=== PATIENT | male | born 1955 | race Caucasian/White ===

== ENCOUNTER → 2019-08-22 | Outpatient (CLI) | payer OTHER, SELFPAY ==
--- NOTE | 2019-08-22 | IMM_PTH ---
PATIENT: KENJI HERNANDES Jr. LOC: [facility] U#:[id number] AGE/SX: 63/M ROOM: RE08/22/[address]: Dr. Daniel Carrillo MD : 1955 BED: DIS: 08/22/2019 SPEC #: [id number] RECD: 08/26/19 12:50 STATUS: SOUT REQ #: [id number] JEY: 08/22/19 00:[address]: Nick Carrillo DEPT: IMMUNOHISTOCHEMISTRY RECD BY: Dolores Mcintosh ENTERED: 08/26/19 12:51 SP TYPE: IMMUNO OTHR DR: MD Dr. Daniel Monge, DO Tissues: Tongue, NOS Procedures: SMA (add) CD31 (add) CD34 (add) CD45 (add) CK5-6 (add) CK7 (add) CK8 (add) DESMIN (add) KI-67 (add) MART1 (add) P16 (add) P53 (add) Vimentin (add) Pankeratin (initial) MELAN-A (add) P40 (add) S-100 (add) Comments: @ Ordering doctor for s100. edited from to @ by RGOOD at 08/30/19 1515 @ Ordering doctor for SMA. edited from to @ by RGOOD at 08/30/19 1515 @ Ordering doctor for CD31. edited from to @ by RGOOD at 08/30/19 1515 @ Ordering doctor for CD34. edited from to @ by FREDYOD at 08/30/19 1515 @ Ordering doctor for CD45. edited from to @ by RGOOD at 08/30/19 1515 @ Ordering doctor for CK5-6. edited from to @ by RGOOD at 08/30/19 1515 @ Ordering doctor for CK7. edited from to DR.KMATHU Hassan by RGOOD at 08/30/19 1515 @ Ordering doctor for CK8. edited from to DR.KMATHU Hassan by RGOOD at 08/30/19 1515 @ Ordering doctor for DESMIN. edited from to DR.KMATHU Hassan by RGOOD at 08/30/19 1515 @ Ordering doctor for KI67. edited from to DR.KMATHU Hassan by RGOOD at 08/30/19 1515 @ Ordering doctor for MART1. edited from to DR.KMATHU Hassan by RGOOD at 08/30/19 1515 @ Ordering doctor for P16. edited from to DR.KMATHU Hassan by RGOOD at 08/30/19 1515 @ Ordering doctor for P53. edited from to DR.KMATHU Hassan by RGOOD at 08/30/19 1515 @ Ordering doctor for VIM. edited from to DR.KMATHU Hassan by RGOOD at 08/30/19 1515 @ Ordering doctor for PANK edited from to DR.KMATHU Hassan by RGOOD at 08/30/19 1515 @ Ordering doctor for MELAN. edited from to DR.KMATHU Hassan by RGOMARQUEZ at 08/30/19 1515 @ Ordering doctor for P40. edited from to DR.KMATHU Hassan by RGOOD at 08/30/19 1515 @ Submitting doctor edited from to DR.KMATHU Hassan by RGOOD at 08/30/19 1515 PHYSICIAN & INSTITUTION [facility] [address] [place] [id number] SPECIMEN INFORMATION: Tissue Source: Tongue lesion Clinical Info: Evaluate for squamous cell carcinoma Specimen Number: [id number] CPT code: 30885, 10206 x16 METHODOLOGY: Deparaffinized sections of prefer/formalin-fixed tissue or PAP/DQ stained slides are incubated with monoclonal/polyclonal antibodies/oligonucleotide probes. Localization is made via biotin free immunoperoxidase method. Appropriate controls are performed and reacted as expected. Results on target cell population are indicated in the following table: RESULTS: ANTIBODY / CLONE RESULT AE1-3 (AE1/AE3/PCK26) positive, focal CK8 ([id number]) positive, focal Vimentin (V9) positive Melan A (A103) negative S-100 (4C4.9) positive, focal CK5-6 (D5 & 1684) positive P40 (BC28) positive P16 (E6H4) negative Actin (1A4) negative Desmin (CE-R-11) negative CK7 (OV-TL12/30) negative CD31 (CASIMIRO/70A) negative CD34 (QBEnd-10) negative CD45 (RP2/18) negative P53 (DO-7) negative Ki-67 (30-9) positive These tests were developed and their performance characteristics determined by [facility]. They may not have been cleared or approved by the U.S. Food and Drug Administration. The FDA has determined that such clearance or approval is not necessary. The above immunohistochemical/dualISH markers are ordered and reviewed by the Pathologist. INTERPRETATION: Tongue lesion, biopsy: Poorly differentiated malignant neoplasm. 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 Clinical correlation is necessary. Case has been reviewed in consultation with Dr. Garcia who concurs with the above diagnosis. IDC:AM
--- NOTE | 2019-08-22 09:40 | TOBX_PTH ---
PATIENT: KENJI HERNANDES Jr. LOC: [facility] U#:[id number] AGE/SX: 63/M ROOM: RE08/22/[address]: Dr. Daniel Carrillo MD : 1955 BED: DIS: 08/22/2019 SPEC #: [id number] RECD: 08/22/19 15:35 STATUS: MOSHE REQ #: [id number] JEY: 08/22/19 09:[address]: Nick Carrillo DEPT: SURGICAL PATHOLOGY RECD BY: Sukhdeep Rico ENTERED: 08/23/19 11:13 SP TYPE: TONGUE BX OTHR DR: MD Dr. Daniel Monge DO Tissues: Tongue, NOS Procedures: Surgery Specimen Level IV Comments: @ Ordering doctor for SUIV edited from to @ by RGOOD at 08/30/19 1514 @ Submitting doctor edited from to @ by RGOOD at 08/30/19 1514 HEADER OPERATION: Biopsy PRE-OP DIAGNOSIS: Evaluate for squamous cell carcinoma TISSUE SUBMITTED: Tongue lesion MICROSCOPIC DIAGNOSIS Tongue lesion, biopsy: Poorly differentiated malignant neoplasm. See comment. 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 Correlation with clinical findings and appropriate follow up are necessary. This case is discussed with Dr. Barbara Carrillo on 08/28/19. Case has been reviewed in consultation with Dr. Garcia who concurs with the above diagnosis. IDC:AM. MICROSCOPIC DESCRIPTION Slides are reviewed. GROSS DESCRIPTION Received in fixative is one container labeled with the patient's name and designated tongue lesion. The specimen consists of a piece of pickard mucosal tissue measuring 0.5 x 0.3 x 0.1 cm. The specimen is totally submitted in one cassette. / ADWOA:ashleigh 08/23/19 TC:0 [facility]: [id number] ADDENDUM ADDENDUM ADDENDUM ADDENDUM ADDENDUM ADDENDUM ADDENDUM ADDENDUM ADDENDUM ADDENDUM 10/17/2019 10:54 ADDENDUM 10/17/2019 10:54 ADDENDUM 10/17/2019 10:54 ADDENDUM 10/17/2019 10:54 ADDENDUM 10/17/2019 10:54 This addendum is added to incorporate an outside pathology consultation report. The case was examined at [facility] (#[id number]) and the following diagnosis was rendered. 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 Please see complete above mentioned consultation report in EMR
== END | disposition home or self-care (01) ==
LOC: LABSPEC 16:20
PROVIDERS: PCP Student in an Organized Health Care Education/Training Program; Referring Provider Otolaryngology Otolaryngology/Facial Plastic Surgery; Visit Provider Otolaryngology Otolaryngology/Facial Plastic Surgery
DX: K14.9 Disease of tongue, unspecified (principal)
CPT/HCPCS: 88305; 88341; 88342

== ENCOUNTER 2019-09-27 11:25 | Outpatient (RCR) | payer OTHER, SELFPAY ==
[2019-09-27 11:50] VITALS: BP 134/76; PULSE 93; RESP 16; TEMP 36.7; BMI 27.3
--- NOTE | 2019-09-29 18:37 | HP.PCM_ITS ---
(1) Tongue cancer Status: Chronic Code(s): C02.9 - Malignant neoplasm of tongue, unspecified (2) Skin graft failure Status: Chronic Code(s): T86.821 - Skin graft (allograft) (autograft) failure (3) Complication of skin graft Status: Chronic Qualifiers: Transplant complication type: failure Qualified Code(s): T86.821 - Skin graft (allograft) (autograft) failure Code(s): T86.829 - Unspecified complication of skin graft (allograft) (autograft) (4) Non-healing surgical wound Status: Chronic Qualifiers: Encounter type: subsequent encounter Qualified Code(s): T81.89XD - Other complications of procedures, not elsewhere classified, subsequent encounter Code(s): T81.89XA - Other complications of procedures, not elsewhere classified, initial encounter (5) Tobacco abuse Status: Chronic Code(s): Z72.0 - Tobacco use (6) Hyperlipidemia Status: Chronic Code(s): E78.5 - Hyperlipidemia, unspecified History of Present Illness Date of Service: 09/27/19 Chief Complaint: nonhealing surgical wound of left forearm s/p skin allograft from left thigh History of Wound: Girish is a 64 yo man who presents to the wound healing center for evaluation of a nonhealing surgical wound of his left volar forearm s/p surgery for harvesting a vein from his left forearm to supply blood to a skin graft to his left tongue after a tumor was removed on 09/10/2019 at [facility] by Dr. Duc Brand and radiation is planned to his right head and neck by Dr. 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 He currently is not on any antibiotics and has been dressing the wound with iodoform gauze and bacitracin. He saw his surgeon and he recommended that he be seen at the wound care center. He does have some moderate drainage from his wound. He continues to smoke several cigars per week. He denies any fever or chills or odor or increased pain. Past Medical History Past Medical History: Chronic Problems Tongue cancer (Chronic) Skin graft failure (Chronic) Complication of skin graft (Chronic) Non-healing surgical wound (Chronic) Tobacco abuse (Chronic) Hyperlipidemia (Chronic) Allergies/Adverse Reactions: Allergies No Known Allergies Allergy (Verified 09/27/19 11:52) Home Medications: Ambulatory Orders Medication Instructions Recorded Acetaminophen Liquid [Tylenol 160 mg PO Q4H PRN PRN 09/27/19 Liquid] Aspirin 325 mg PO DAILY@0800 09/27/19 Atorvastatin Calcium [Lipitor] 40 mg PO QHS 09/27/19 Fluoxetine [Prozac] 40 mg PO DAILY 09/27/19 traMADol [Ultram (G)] 50 mg PO Q8H PRN PRN 09/27/19 traZODone [Desyrel] 50 mg PO QHS 09/27/19 Lives: Spouse/ Significant Other Smoking Status: Current every day smoker Tobacco Use: Non-smoker Alcohol: None Drugs: None Review of Systems Constitutional: Denies: Chills, Fever, Weight Change Eyes: Denies: Pain, Vision Change HEENT: Reports: Difficulty Swallowing. Denies: Difficulty Hearing, Sinus Congestion Cardiovascular: Denies: Chest Pain, Palpitations Respiratory: Denies: Cough, Shortness of Breath Gastrointestinal: Denies: Diarrhea, Nausea, Vomiting Genitourinary: Denies: Dysuria, Hematuria Musculoskeletal: Reports: Arm Pain Skin: Reports: Wounds Endocrine: Denies: Heat/ Cold Intolerance, Polydipsia, Polyuria Hematologic/ Lymphatic: Denies: Easy Bruising, Easy Bleeding - Physical Exam Vital Signs Temp Pulse Resp BP 98.1 F 93 16 134/76 H 09/27/19 11:50 09/27/19 11:50 09/27/19 11:50 09/27/19 11:50 General: Alert, Oriented x3, Cooperative, No apparent distress HEENT: Atraumatic, Normocephalic Oral: Moist Mucosa Neck: Supple Lungs: Clear to auscultation Cardiovascular: Regular rate, Regular Rhythm Abdomen: Soft, Non Tender Extremities: No edema Skin: Ulcer/ Wound Wound Measurements and Assessment WC - Nurse 1 - General Ulcer Measurement Start: 09/27/19 11:46 Freq: Status: Active Protocol: Activity Type Activity Date Activity User E-Sign Co-Sign Detail Recorded Client Recorded Date Recorded By Document 09/27/19 11:50 [facility] [id number] 09/27/19 12:03 [facility] 09/27/19 11:50 Wound Center Nurse 1 [Ulcer Assessment] #1- L WRIST -Combined with other wound No -Current Size (cm) - Length 7.4 -Current Size (cm) - Width 5.7 -Current Size (cm) - Depth 0.3 -Total Square Cm 42.18 -Date of Last Picture (Recall this 09/27/19 field) -Photo Taken Yes -Epithelialization None Present -Tunneling No -Undermining/Tunneling No -Circular Undermining No -Exudate Amt Small -Exudate Type Serosanguineous -Wound Margin Thickened -Granulation Amt Large (67-100%) -Granulation Quality [place] -Slough/Fibrin Yes -Necrosis Amt Small (1-33%) -Necrotic Tissue Type Adherent Slough -Texture (Kim-wound Skin Appearance) Assessed, Scarring -Moisture (Kim-wound Skin Appearance Assessed ) -Color (Kim-wound Skin Appearance) Assessed, Erythema -Temperature (Kim-wound Skin No Abnormality Appearance) (Pt Warm) -Tenderness on Palpation (Kim-wound No Skin Appearance) -Ulcer Cleansing Rinsed/ Irrigated with Saline -Foul Odor after Cleansing No -Anesthetic Used 5% Lidocaine Gel WC - Nurse 2 - General Ulcer CM Notes Start: 09/27/19 11:46 Freq: Status: Active Protocol: Activity Type Activity Date Activity User E-Sign Co-Sign Detail Recorded Client Recorded Date Recorded By Document 09/27/19 12:34 MW [id number] 09/27/19 12:58 MW 09/27/19 12:34 Wound Center Nurse 2 [Procedure/Treatment] -Time 12:43 -Correct Patient Yes -Correct Side, Site, Position Yes -Correct Procedure Yes -Procedure Performed Yes -Type of Procedure Debridement -Clinical Debridement Subcutaneous -Post Debridement Size (cm) - Length 7.5 -Post Debridement Size (cm) - Width 5.5 -Post Debridement Size (cm) - Depth 0.2 -Total Square Cm 41.25 -Wound/Ulcer Outcome Not Healed -Ulcer Cleansing Rinsed/ Irrigated with Saline -Foul Odor after Cleansing No -Bioengineered Tissue No -Bleeding Controlled with Pressure -Offloading No -Treatment Response Procedure Tolerated Well [See Physician Procedure note for Specifics] Pain Scale: 0-10 Numeric [Pain] -Is Patient Pain Free? Yes Psych/Mental Status: Normal Affect, Appropriate Debridement Note Post-Debridement Measurements/Treatment WC - Nurse 2 - General Ulcer CM Notes Start: 09/27/19 11:46 Freq: Status: Active Protocol: Activity Type Activity Date Activity User E-Sign Co-Sign Detail Recorded Client Recorded Date Recorded By Document 09/27/19 12:34 MW [id number] 09/27/19 12:58 MW 09/27/19 12:34 Wound Center Nurse 2 #1- L WRIST -Time 12:43 -Correct Patient Yes -Correct Side, Site, Position Yes -Correct Procedure Yes -Procedure Performed Yes -Type of Procedure Debridement -Clinical Debridement Subcutaneous -Post Debridement Size (cm) - Length 7.5 -Post Debridement Size (cm) - Width 5.5 -Post Debridement Size (cm) - Depth 0.2 -Total Square Cm 41.25 -Wound/Ulcer Outcome Not Healed -Ulcer Cleansing Rinsed/ Irrigated with Saline -Foul Odor after Cleansing No -Bioengineered Tissue No -Bleeding Controlled with Pressure -Offloading No -Treatment Response Procedure Tolerated Well Pain Scale: 0-10 Numeric Is Patient Pain Free? Yes Wound debrided: left wrist Laterality: Left Type of Debridement: Excisional debridement Anesthesia Used: 4% Lidocaine Solution, 5% Lidocaine Gel Depth: Down to and including healthy tissue, in the subcutaneous layer, to muscle Percentage of wound debrided: 40 Instrument Used: 5mm curette Tissue Removed: yellow slough, devitalized tissue Severity: Fat Layer Exposed Amount of bleeding with debridement: Mild Bleeding Controlled with: Compression and gauze Patient tolerated procedure well Assessment/Plan Assessment: nonhealing surgical wound with skin graft failure s/p allograft from left thigh Plan: Girish wound was evaluated and debrided today. Will have him use Promogran moistened and adaptic to the wound with changes daily. Wound culture was taken today to rule out infection. Encouraged increased protein intake. He will follow up in 1 week.
== END 2019-09-28 23:59 ==
LOC: WC 11:25
PROVIDERS: PCP Student in an Organized Health Care Education/Training Program; Referring Provider Family Medicine; Visit Provider Family Medicine
DX: T86.821 Skin graft (allograft) (autograft) failure (principal); Y83.2 Surgical operation with anastomosis, bypass or graft as the cause of abnormal reaction of the patient, or of later complication, without mention of misadventure at the time of the procedure; E78.5 Hyperlipidemia, unspecified; F17.290 Nicotine dependence, other tobacco product, uncomplicated; C02.9 Malignant neoplasm of tongue, unspecified; Z79.899 Other long term (current) drug therapy; Z79.82 Long term (current) use of aspirin
CPT/HCPCS: 11042; 11045; 87070; 87075; 87077; 87186; 87205; 99213; G0463

== ENCOUNTER 2019-10-18 13:00 | Outpatient (RCR) | payer OTHER, SELFPAY ==
[2019-09-29 01:12] VITALS: BP 134/76; PULSE 93; RESP 16; TEMP 36.7
[2019-10-04 12:17] VITALS: BP 136/69; PULSE 78; RESP 18; TEMP 36.4; BMI 27.3
--- NOTE | 2019-10-04 16:50 | PCM.WC.PN ---
(1) Tongue cancer Status: Chronic Current Visit: Yes Code(s): C02.9 - Malignant neoplasm of tongue, unspecified (2) Skin graft failure Status: Chronic Current Visit: Yes Code(s): T86.821 - Skin graft (allograft) (autograft) failure (3) Complication of skin graft Status: Chronic Current Visit: Yes Qualifiers: Transplant complication type: failure Code(s): T86.829 - Unspecified complication of skin graft (allograft) (autograft) (4) Non-healing surgical wound Status: Chronic Current Visit: Yes Qualifiers: Encounter type: subsequent encounter Code(s): T81.89XA - Other complications of procedures, not elsewhere classified, initial encounter (5) Tobacco abuse Status: Chronic Current Visit: Yes Code(s): Z72.0 - Tobacco use (6) Hyperlipidemia Status: Chronic Current Visit: Yes Qualifiers: Hyperlipidemia type: unspecified Qualified Code(s): E78.5 - Hyperlipidemia, unspecified Code(s): E78.5 - Hyperlipidemia, unspecified Type of Wound Date of Service: 10/04/19 Chief Complaint: nonhealing surgical wound of left forearm s/p skin allograft from left thigh History of Wound: Girish is a 64 yo man who presents to the wound healing center for evaluation of a nonhealing surgical wound of his left volar forearm s/p surgery for harvesting a vein from his left forearm to supply blood to a skin graft to his left tongue after a tumor was removed on 09/10/2019 at [facility] by Dr. Duc Brand and radiation is planned to his right head and neck by Dr. 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 He currently is not on any antibiotics and has been dressing the wound with iodoform gauze and bacitracin. He saw his surgeon and he recommended that he be seen at the wound care center. He does have some moderate drainage from his wound. He continues to smoke several cigars per week. He denies any fever or chills or odor or increased pain. Progress of Wound: Girish is here today for follow up of a nonhealing surgical wound of his left forearm. He tolerated Promogran and adaptic treatment. The wound looks a little dry today. He denies any increased pain or drainage or odor. Wound culture was positive for rare growth of staph epidermidis which is likely contaminant. - Physical Exam Vital Signs Temp Pulse Resp BP 97.5 F L 78 18 136/69 H 10/04/19 12:17 10/04/19 12:17 10/04/19 12:17 10/04/19 12:17 General: Alert, Oriented x3, Cooperative, No apparent distress HEENT: Atraumatic, Normocephalic Oral: Moist Mucosa Neck: Supple Extremities: No edema Skin: Ulcer/ Wound Wound Measurements and Assessment WC - Nurse 1 - General Ulcer Measurement Start: 10/04/19 12:16 Freq: Status: Active Protocol: Activity Type Activity Date Activity User E-Sign Co-Sign Detail Recorded Client Recorded Date Recorded By Document 10/04/19 12:17 MW [id number] 10/04/19 12:22 MW 10/04/19 12:17 Wound Center Nurse 1 [Ulcer Assessment] #1- L WRIST -Combined with other wound No -Current Size (cm) - Length 7.0 -Current Size (cm) - Width 5.0 -Current Size (cm) - Depth 0.3 -Total Square Cm 35.00 -Photo Taken No -Epithelialization None Present -Tunneling No -Undermining/Tunneling No -Circular Undermining No -Exudate Amt Medium -Exudate Type Serosanguineous -Wound Margin Flat & Intact -Granulation Amt Medium (34-66%) -Granulation Quality Red -Slough/Fibrin Yes -Necrosis Amt Medium (34-66%) -Necrotic Tissue Type Adherent Slough -Structure Exposed N/A -Texture (Kim-wound Skin Appearance) Assessed, Scarring -Moisture (Kim-wound Skin Appearance No Abnormality, ) Assessed -Color (Kim-wound Skin Appearance) No Abnormality, Assessed -Temperature (Kim-wound Skin No Abnormality Appearance) (Pt Warm) -Tenderness on Palpation (Kim-wound No Skin Appearance) -Ulcer Cleansing SOAP AND WATER -Foul Odor after Cleansing No -Anesthetic Used 5% Lidocaine Gel [Edema Assessment] -Lower Limb Edema Present No WC - Nurse 2 - General Ulcer CM Notes Start: 10/04/19 12:16 Freq: Status: Active Protocol: Activity Type Activity Date Activity User E-Sign Co-Sign Detail Recorded Client Recorded Date Recorded By Document 10/04/19 12:42 MW [id number] 10/04/19 13:01 MW 10/04/19 12:42 Wound Center Nurse 2 [Procedure/Treatment] #1- L WRIST -Time 12:43 -Correct Patient Yes -Correct Side, Site, Position Yes -Correct Procedure Yes -Procedure Performed Yes -Type of Procedure Debridement -Clinical Debridement Subcutaneous -Post Debridement Size (cm) - Length 7.2 -Post Debridement Size (cm) - Width 3.7 -Post Debridement Size (cm) - Depth 0.2 -Total Square Cm 26.64 -Wound/Ulcer Outcome Not Healed -Ulcer Cleansing Rinsed/ Irrigated with Saline -Foul Odor after Cleansing No -Bioengineered Tissue No -Bleeding Controlled with Pressure -Offloading No -Treatment Response Procedure Tolerated Well [See Physician Procedure note for Specifics] Pain Scale: 0-10 Numeric [Pain] -Is Patient Pain Free? Yes Psych/Mental Status: Normal Affect, Appropriate Debridement Note Post-Debridement Measurements/Treatment WC - Nurse 2 - General Ulcer CM Notes Start: 10/04/19 12:16 Freq: Status: Active Protocol: Activity Type Activity Date Activity User E-Sign Co-Sign Detail Recorded Client Recorded Date Recorded By Document 10/04/19 12:42 MW [id number] 10/04/19 13:01 MW 10/04/19 12:42 Wound Center Nurse 2 #1- L WRIST -Time 12:43 -Correct Patient Yes -Correct Side, Site, Position Yes -Correct Procedure Yes -Procedure Performed Yes -Type of Procedure Debridement -Clinical Debridement Subcutaneous -Post Debridement Size (cm) - Length 7.2 -Post Debridement Size (cm) - Width 3.7 -Post Debridement Size (cm) - Depth 0.2 -Total Square Cm 26.64 -Wound/Ulcer Outcome Not Healed -Ulcer Cleansing Rinsed/ Irrigated with Saline -Foul Odor after Cleansing No -Bioengineered Tissue No -Bleeding Controlled with Pressure -Offloading No -Treatment Response Procedure Tolerated Well Pain Scale: 0-10 Numeric Is Patient Pain Free? Yes Wound debrided: left wrist Laterality: Left Type of Debridement: Excisional debridement Anesthesia Used: 4% Lidocaine Solution, 5% Lidocaine Gel Depth: Down to and including healthy tissue, in the subcutaneous layer, to muscle Percentage of wound debrided: 40 Instrument Used: 5mm curette Tissue Removed: yellow slough, devitalized tissue Severity: Fat Layer Exposed Amount of bleeding with debridement: Mild Bleeding Controlled with: Compression and gauze Patient tolerated procedure well Assessment/Plan Active Problems Tongue cancer (Chronic) Skin graft failure (Chronic) Complication of skin graft (Chronic) Non-healing surgical wound (Chronic) Tobacco abuse (Chronic) Hyperlipidemia (Chronic) Assessment: nonhealing surgical wound with skin graft failure s/p allograft from left thigh Plan: Girish wound was evaluated and debrided today. Will have him use Hydrogel and adaptic to the wound with changes daily. Wound culture was positive for staph epidermidis with rare growth. Will monitor for signs of active infection. Encouraged increased protein intake. He will follow up in 1 week.
[2019-10-11 13:50] VITALS: BP 123/71; PULSE 77; RESP 16; TEMP 36.4; BMI 27.3
--- NOTE | 2019-10-18 12:50 | PN.PCM_ITS ---
(1) Tongue cancer Status: Chronic Code(s): C02.9 - Malignant neoplasm of tongue, unspecified (2) Skin graft failure Status: Chronic Code(s): T86.821 - Skin graft (allograft) (autograft) failure (3) Complication of skin graft Status: Chronic Qualifiers: Transplant complication type: failure Code(s): T86.829 - Unspecified complication of skin graft (allograft) (autograft) (4) Non-healing surgical wound Status: Chronic Qualifiers: Encounter type: subsequent encounter Code(s): T81.89XA - Other complications of procedures, not elsewhere classified, initial encounter (5) Tobacco abuse Status: Chronic Code(s): Z72.0 - Tobacco use (6) Hyperlipidemia Status: Chronic Qualifiers: Hyperlipidemia type: unspecified Qualified Code(s): E78.5 - Hyperlipidemia, unspecified Code(s): E78.5 - Hyperlipidemia, unspecified Type of Wound Date of Service: 10/11/19 Chief Complaint: nonhealing surgical wound of left forearm s/p skin allograft from left thigh History of Wound: Girish is a 64 yo man who presents to the wound healing center for evaluation of a nonhealing surgical wound of his left volar forearm s/p surgery for harvesting a vein from his left forearm to supply blood to a skin graft to his left tongue after a tumor was removed on 09/10/2019 at [facility] by Dr. Duc Brand and radiation is planned to his right head and neck by Dr. 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 He currently is not on any antibiotics and has been dressing the wound with iodoform gauze and bacitracin. He saw his surgeon and he recommended that he be seen at the wound care center. He does have some moderate drainage from his wound. He continues to smoke several cigars per week. He denies any fever or chills or odor or increased pain. Progress of Wound: Girish is here today for follow up of a nonhealing surgical wound of his left forearm. He tolerated hydrogel and adaptic treatment. He denies any increased pain or drainage or odor. - Physical Exam Vital Signs Temp Pulse Resp BP 97.5 F L 77 16 123/71 H 10/11/19 13:50 10/11/19 13:50 10/11/19 13:50 03/13/20 13:50 General: Alert, Oriented x3, Cooperative, No apparent distress HEENT: Atraumatic, Normocephalic Oral: Moist Mucosa Neck: Supple Skin: Ulcer/ Wound Psych/Mental Status: Normal Affect, Appropriate Debridement Note Post-Debridement Measurements/Treatment WC - Nurse 2 - General Ulcer CM Notes Start: 10/04/19 12:16 Freq: Status: Active Protocol: Activity Type Activity Date Activity User E-Sign Co-Sign Detail Recorded Client Recorded Date Recorded By Document 10/04/19 12:42 MW [id number] 10/04/19 13:01 MW Document 10/11/19 14:20 MW [id number] 10/11/19 14:31 MW 10/04/19 10/11/19 12:42 14:20 Wound Center Nurse 2 #1- L WRIST -Time 12:43 14:20 -Correct Patient Yes Yes -Correct Side, Site, Position Yes Yes -Correct Procedure Yes Yes -Procedure Performed Yes Yes -Type of Procedure Debridement Debridement -Clinical Debridement Subcutaneous Subcutaneous -Post Debridement Size (cm) - Length 7.2 6.3 -Post Debridement Size (cm) - Width 3.7 3.5 -Post Debridement Size (cm) - Depth 0.2 0.2 -Total Square Cm 26.64 22.05 -Wound/Ulcer Outcome Not Healed Not Healed -Ulcer Cleansing Rinsed/ Rinsed/ Irrigated with Irrigated with Saline Saline -Foul Odor after Cleansing No No -Bioengineered Tissue No No -Bleeding Controlled with Pressure Pressure -Offloading No No -Treatment Response Procedure Procedure Tolerated Well Tolerated Well Pain Scale: 0-10 Numeric Is Patient Pain Free? Yes Yes Wound debrided: left wrist Laterality: Left Type of Debridement: Excisional debridement Anesthesia Used: 4% Lidocaine Solution, 5% Lidocaine Gel Depth: Down to and including healthy tissue, in the subcutaneous layer, to muscle Percentage of wound debrided: 100 Instrument Used: 5mm curette Tissue Removed: yellow slough, devitalized tissue Severity: Fat Layer Exposed Amount of bleeding with debridement: Mild Bleeding Controlled with: Compression and gauze Patient tolerated procedure well Assessment/Plan Assessment: nonhealing surgical wound with skin graft failure s/p allograft from left thigh Plan: Girish' wound was evaluated and debrided today. Will have him continue to use Hydrogel and adaptic to the wound with changes daily. Encouraged increased protein intake. He will follow up in 1 week.
[2019-10-18 12:59] VITALS: BP 126/71; PULSE 88; RESP 18; TEMP 37.1; BMI 27.3
--- NOTE | 2019-10-18 16:34 | PCM.WC.PN ---
(1) Tongue cancer Status: Chronic Current Visit: Yes Code(s): C02.9 - Malignant neoplasm of tongue, unspecified (2) Skin graft failure Status: Chronic Current Visit: Yes Code(s): T86.821 - Skin graft (allograft) (autograft) failure (3) Complication of skin graft Status: Chronic Current Visit: Yes Qualifiers: Transplant complication type: failure Code(s): T86.829 - Unspecified complication of skin graft (allograft) (autograft) (4) Non-healing surgical wound Status: Chronic Current Visit: Yes Qualifiers: Encounter type: subsequent encounter Code(s): T81.89XA - Other complications of procedures, not elsewhere classified, initial encounter (5) Tobacco abuse Status: Chronic Current Visit: Yes Code(s): Z72.0 - Tobacco use (6) Hyperlipidemia Status: Chronic Current Visit: Yes Qualifiers: Hyperlipidemia type: unspecified Qualified Code(s): E78.5 - Hyperlipidemia, unspecified Code(s): E78.5 - Hyperlipidemia, unspecified Type of Wound Date of Service: 10/18/19 Chief Complaint: nonhealing surgical wound of left forearm s/p skin allograft from left thigh History of Wound: Girish is a 64 yo man who presents to the wound healing center for evaluation of a nonhealing surgical wound of his left volar forearm s/p surgery for harvesting a vein from his left forearm to supply blood to a skin graft to his left tongue after a tumor was removed on 09/10/2019 at [facility] by Dr. Duc Brand and radiation is planned to his right head and neck by Dr. 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 He currently is not on any antibiotics and has been dressing the wound with iodoform gauze and bacitracin. He saw his surgeon and he recommended that he be seen at the wound care center. He does have some moderate drainage from his wound. He continues to smoke several cigars per week. He denies any fever or chills or odor or increased pain. Progress of Wound: Girish is here today for follow up of a nonhealing surgical wound of his left forearm. He tolerated hydrogel and adaptic treatment every other day with less maceration. He denies any increased pain or drainage or odor. - Physical Exam Vital Signs Temp Pulse Resp BP 98.7 F 88 18 126/71 H 10/18/19 12:59 10/18/19 12:59 10/18/19 12:59 10/18/19 12:59 General: Alert, Oriented x3, Cooperative, No apparent distress HEENT: Atraumatic, Normocephalic Oral: Moist Mucosa Abdomen: Obese Skin: Ulcer/ Wound Wound Measurements and Assessment WC - Nurse 1 - General Ulcer Measurement Start: 10/04/19 12:16 Freq: Status: Active Protocol: Activity Type Activity Date Activity User E-Sign Co-Sign Detail Recorded Client Recorded Date Recorded By Document 10/18/19 12:59 RB [id number] 10/18/19 13:05 RB 10/18/19 12:59 Wound Center Nurse 1 [Ulcer Assessment] #1- L WRIST -Combined with other wound No -Current Size (cm) - Length 5.5 -Current Size (cm) - Width 2.7 -Current Size (cm) - Depth 0.2 -Total Square Cm 14.85 -Tunneling No -Undermining/Tunneling No -Circular Undermining No -Exudate Amt Small -Exudate Type Serosanguineous -Wound Margin Flat & Intact -Granulation Amt Large (67-100%) -Granulation Quality [place],Red -Slough/Fibrin Yes -Necrosis Amt Small (1-33%) -Necrotic Tissue Type Adherent Slough -Structure Exposed Tendon,N/A -Texture (Kim-wound Skin Appearance) Assessed, Scarring -Moisture (Kim-wound Skin Appearance Assessed ) -Color (Kim-wound Skin Appearance) Assessed -Temperature (Kim-wound Skin No Abnormality Appearance) (Pt Warm) -Tenderness on Palpation (Kim-wound No Skin Appearance) -Ulcer Cleansing Wound Cleanser -Foul Odor after Cleansing No -Anesthetic Used 4% Lidocaine Solution WC - Nurse 2 - General Ulcer CM Notes Start: 10/04/19 12:16 Freq: Status: Active Protocol: Activity Type Activity Date Activity User E-Sign Co-Sign Detail Recorded Client Recorded Date Recorded By Document 10/18/19 13:19 DV [id number] 10/18/19 13:29 DV 10/18/19 13:19 Wound Center Nurse 2 [Procedure/Treatment] -Time 13:19 -Correct Patient Yes -Correct Side, Site, Position Yes -Correct Procedure Yes -Procedure Performed Yes -Type of Procedure Debridement -Clinical Debridement Subcutaneous -Post Debridement Size (cm) - Length 5.7 -Post Debridement Size (cm) - Width 2.8 -Post Debridement Size (cm) - Depth 0.2 -Total Square Cm 15.96 -Wound/Ulcer Outcome Not Healed -Ulcer Cleansing Rinsed/ Irrigated with Saline -Foul Odor after Cleansing No -Bioengineered Tissue No -Bleeding Controlled with Pressure -Offloading No -Treatment Response Procedure Tolerated Well [See Physician Procedure note for Specifics] Pain Scale: 0-10 Numeric [Pain] -Is Patient Pain Free? Yes Psych/Mental Status: Normal Affect, Appropriate Debridement Note Post-Debridement Measurements/Treatment WC - Nurse 2 - General Ulcer CM Notes Start: 10/04/19 12:16 Freq: Status: Active Protocol: Activity Type Activity Date Activity User E-Sign Co-Sign Detail Recorded Client Recorded Date Recorded By Document 10/04/19 12:42 MW [id number] 10/04/19 13:01 MW Document 10/11/19 14:20 MW [id number] 10/11/19 14:31 MW Document 10/18/19 13:19 DV [id number] 10/18/19 13:29 DV 10/04/19 10/11/19 10/18/19 12:42 14:20 13:19 Wound Center Nurse 2 #1- L WRIST -Time 12:43 14:20 13:19 -Correct Patient Yes Yes Yes -Correct Side, Site, Position Yes Yes Yes -Correct Procedure Yes Yes Yes -Procedure Performed Yes Yes Yes -Type of Procedure Debridement Debridement Debridement -Clinical Debridement Subcutaneous Subcutaneous Subcutaneous -Post Debridement Size (cm) - Length 7.2 6.3 5.7 -Post Debridement Size (cm) - Width 3.7 3.5 2.8 -Post Debridement Size (cm) - Depth 0.2 0.2 0.2 -Total Square Cm 26.64 22.05 15.96 -Wound/Ulcer Outcome Not Healed Not Healed Not Healed -Ulcer Cleansing Rinsed/ Rinsed/ Rinsed/ Irrigated with Irrigated with Irrigated with Saline Saline Saline -Foul Odor after Cleansing No No No -Bioengineered Tissue No No No -Bleeding Controlled with Pressure Pressure Pressure -Offloading No No No -Treatment Response Procedure Procedure Procedure Tolerated Well Tolerated Well Tolerated Well Pain Scale: 0-10 Numeric Is Patient Pain Free? Yes Yes Yes Wound debrided: left wrist Laterality: Left Type of Debridement: Excisional debridement Anesthesia Used: 4% Lidocaine Solution, 5% Lidocaine Gel Depth: Down to and including healthy tissue, in the subcutaneous layer, to muscle Percentage of wound debrided: 100 Instrument Used: 5mm curette Tissue Removed: yellow slough, devitalized tissue Severity: Fat Layer Exposed Amount of bleeding with debridement: Mild Bleeding Controlled with: Compression and gauze Patient tolerated procedure well Assessment/Plan Active Problems Tongue cancer (Chronic) Skin graft failure (Chronic) Complication of skin graft (Chronic) Non-healing surgical wound (Chronic) Tobacco abuse (Chronic) Hyperlipidemia (Chronic) Assessment: nonhealing surgical wound with skin graft failure s/p allograft from left thigh Plan: Girish' wound was evaluated and debrided today. Will have him continue to use Hydrogel and adaptic to the wound with changes every other day. Encouraged increased protein intake. He will follow up in 2 weeks.
== END 2019-10-29 23:59 ==
LOC: WC 13:00
PROVIDERS: PCP Student in an Organized Health Care Education/Training Program; Referring Provider Family Medicine; Visit Provider Family Medicine
DX: T86.821 Skin graft (allograft) (autograft) failure (principal); F17.290 Nicotine dependence, other tobacco product, uncomplicated; Y83.2 Surgical operation with anastomosis, bypass or graft as the cause of abnormal reaction of the patient, or of later complication, without mention of misadventure at the time of the procedure; E78.5 Hyperlipidemia, unspecified; C02.9 Malignant neoplasm of tongue, unspecified
CPT/HCPCS: 11042; 11045